=== PATIENT | male | born 1965 | race Caucasian/White ===

== ENCOUNTER 2023-11-05 05:59 | Day surgery (SDC) | payer MEDICAID ==
[~2023-11-05] VITALS: Ht 170.2 cm; Wt 112.3 kg
[2023-11-05] MEDS ORDERED: PROPOFOL 1% 20 ML VIAL IVP ONE (06:00)
[2023-11-05] MEDS ORDERED: LIDOCAINE/PF 2% 5 ML VIAL IM ONE (06:00)
[2023-11-05] MEDS ORDERED: SODIUM CHLORIDE 0.9% 1,000 ML ONE (06:04)
[2023-11-05] MEDS: SODIUM CHLORIDE 0.9% 1,000 ML IV ONE (06:51)
[2023-11-05] MEDS ORDERED: HYDR10TA31 PO (07:18)
[2023-11-05] MEDS ORDERED: ASPI-1444 PO (07:18)
[2023-11-05] MEDS ORDERED: METO100T14 PO (07:18)
[2023-11-05] MEDS ORDERED: CHLO25TA3 PO (07:18)
[2023-11-05] MEDS ORDERED: ATOR40TA71 PO (07:18)
[2023-11-05] MEDS ORDERED: LOSA100T59 PO (07:18)
[2023-11-05] MEDS ORDERED: SPIR-37 PO (07:18)
== END 2023-11-05 10:15 | disposition home or self-care (01) ==
LOC: SURGERY 05:59
PROVIDERS: ATTEND Internal Medicine Gastroenterology
DX: R19.5 Other fecal abnormalities (principal); D12.3 Benign neoplasm of transverse colon; D12.0 Benign neoplasm of cecum; K64.8 Other hemorrhoids; K29.60 Other gastritis without bleeding; I10 Essential (primary) hypertension; Z79.82 Long term (current) use of aspirin; Z98.890 Other specified postprocedural states
CPT/HCPCS: 45385; 43239; 88305; 88312; 88313; C1769; J2704; J3490; J7030